=== PATIENT | female | born 2000 ===

== ENCOUNTER → 2025-01-29 15:52 | Outpatient (CLI) | payer OTHER, SELFPAY ==
--- NOTE | 2025-01-29 15:55 | DI.MRI.S_ITS ---
PROCEDURE: MR HEAD/BRAIN WO/W CON INDICATIONS: reported 'mass in head,' on prior imaging in [facility] TECHNIQUE: Noncontrast axial T1 spin echo, axial T2 fast spin echo, sagittal and axial FLAIR, coronal T2 fast spin echo, axial gradient echo, axial diffusion and ADC through the brain. After the administration of contrast, axial and coronal and sagittal 3D VIBE or T1 spin echo with fat saturation through the brain. COMPARISON: This dictation was delayed, awaiting outside prior images, which have not arrived by the time of this dictation. FINDINGS: Image quality: Excellent. CSF Spaces: Basal cisterns are patent. No extra-axial fluid collections. Ventricles are normal in size and shape. Brain: No midline shift. No intracranial bleeds or masses. No abnormal intracranial enhancement. The brainstem appears normal. Diffusion-weighted images demonstrate no acute infarct. No chronic ischemic insults. Normal intravascular flow voids are present. Skull and face: Calvarial marrow is normal in signal. Orbits appear normal. Sinuses: Sinuses and mastoids appear clear. IMPRESSION: No mass or abnormal enhancement is identified. (A prior outside MRI is not available for comparison at the time of this dictation. If prior outside studies are made available, comparison will be made and an addendum issued to this report.) Dictated by: Bernardino Marquez M.D. on 02/09/2025 at 12:55 Approved by: Bernardino Marquez M.D. on 02/09/2025 at 12:57
== END ==
PROVIDERS: Family Provider Family Medicine; PCP Family Medicine; Referring Provider Family Medicine; Visit Provider Family Medicine
DX: R22.0 Localized swelling, mass and lump, head (principal)
CPT/HCPCS: 70553; A9579

== ENCOUNTER → 2025-03-12 07:59 | Outpatient (CLI) | payer OTHER, SELFPAY ==
[2025-03-12 09:29] LABS: Add Manual Diff / Slide Review NO; Hematocrit 40.0 % (36-46); Hemoglobin 13.5 g/dL (12.0-16.0); Lymphocytes Absolute Auto 1800 /uL (1100-4500); Mean Corpuscular HGB Conc 33.7 % (30-36); Mean Corpuscular Hemoglobin 28.9 PG (26-34); Mean Corpuscular Volume 85.7 fL (80-100); Platelet Count 326 X10^3/uL (150-400)
[2025-03-12 09:57] LABS: Alanine Aminotransferase 17 IU/L (<35); Albumin 4.1 g/dL (3.5-5.0); Albumin Globulin Ratio 1.4 (1.0-2.8); Alkaline Phosphatase 74 U/L (38-126); Blood Urea Nitrogen 14 mg/dL (7-17); Calcium 9.7 mg/dL (8.4-10.2); Carbon Dioxide 24 mmol/L (22-32); Estimated Glomerular Filt Rate > 60 mL/min (>60); Globulin 2.9 g/dL (1.7-4.1); Glucose 81 mg/dL (70-99); HEMOLYSIS < 15 (0-50); Total Protein 7.0 g/dL (6.3-8.2)
[2025-03-12 10:12] LABS: Vitamin D 25 Hydroxy (D3) 21.9 ng/mL (30.0-100.0)
[2025-03-12 10:33] LABS: Chloride 107 mmol/L (98-107); Potassium 4.7 mmol/L (3.4-5.1); Sodium 137 mmol/L (137-145)
== END ==
PROVIDERS: Family Provider Family Medicine; PCP Family Medicine; Referring Provider Family Medicine; Visit Provider Family Medicine
DX: N80.9 Endometriosis, unspecified (principal); Z86.39 Personal history of other endocrine, nutritional and metabolic disease; Z97.5 Presence of (intrauterine) contraceptive device; K58.9 Irritable bowel syndrome, unspecified
CPT/HCPCS: 36415; 80053; 82306; 85025

== ENCOUNTER → 2025-03-14 07:06 | Outpatient (CLI) | payer OTHER, SELFPAY ==
--- NOTE | 2025-03-14 07:07 | DI.US.S_ITS ---
PROCEDURE: US PELVIC COMPLETE INDICATIONS: Follow-up R ovarian cyst TECHNIQUE: Real-time scanning was performed of the pelvic organs, with image documentation. Additional endovaginal scanning was necessary due to incomplete visualization of the adnexal and endometrial structures by transabdominal scanning. COMPARISON: None. FINDINGS: Uterus: Uterus is anteverted and normal in size at 6.1 x 2.8 x 3.9 cm. The myometrium is homogeneous. The endometrium measures 4 mm combined thickness. Intrauterine device appears in appropriate position. Ovaries: The right ovary measures the 3.2 x 1.6 x 2.8 cm, with a calculated ovarian volume of 7.4 cc. The left ovary measures 2.6 x 1.1 x 2.3 cm, with a calculated ovarian volume of 3.6 cc. The ovaries have a normal sonographic appearance. Less than 12 follicles can be seen in each ovary. No adnexal masses are seen. Other: No pathologic free abdominal or pelvic fluid. IMPRESSION: Normal appearance of the uterus and ovaries. Intrauterine device appears in appropriate position. We strive to produce accurate, complete, and clear reports of imaging services. To assist us in improving patient care, this report was composed using standard report templates and voice recognition software. Therefore, it may contain abnormal punctuation, insertions and/or omissions. Occasional wrong-word or sound-alike substitutions may occur. Though we review the report and make efforts to correct it, we do recommend that the report be read carefully in proper context to recognize any text inaccuracies. Dictated by: Jair Phelan M.D. on 03/14/2025 at 13:00 Approved by: Jair Phelan M.D. on 03/14/2025 at 13:04
== END ==
LOC: US 07:06
PROVIDERS: Family Provider Family Medicine; PCP Family Medicine; Referring Provider Family Medicine; Visit Provider Family Medicine
DX: N83.201 Unspecified ovarian cyst, right side (principal); Z97.5 Presence of (intrauterine) contraceptive device
CPT/HCPCS: 76830; 76857